=== PATIENT | male | born 1940 | race Caucasian/White ===

== ENCOUNTER 2016-09-06 09:18 | Day surgery (SDC) | payer OTHER ==
[2016-09-06] MEDS ORDERED: PROPOFOL 20 ML ONE ×3 (09:43)
[2016-09-06] MEDS ORDERED: LIDOCAINE HCL/PF 2% SDV 5ML VIAL ONE (09:43)
[2016-09-06 10:00] VITALS: BMI 36.0
[2016-09-06 11:07] VITALS: TEMP 97.6
[2016-09-06 11:31] VITALS: PULSE 68
[2016-09-06 11:59] LABS: BASOPHIL 1.7 % (0-2.0); EOSINOPHIL 1.4 % (0-4.5); MCH 28.5 pg (25.7-33.7); MCHC 32.8 g/dl (32.0-35.9); NEUTROPHILS 55.9 % (42.8-82.8); PLATELET COUNT 134 K/MM3 (134-434); RDW 21.5 % (11.9-15.9); WHITE BLOOD COUNT 3.4 K/mm3 (4.0-10.0)
[2016-09-06 12:13] VITALS: BP 118/83
[2016-09-07 06:06] LABS: SERUM IRON 63 ug/dL (38-169); TOTAL IRON BINDING CAPACITY 384 ug/dL (250-450); UIBC 321 ug/dL (111-343)
--- NOTE | 2016-09-07 12:09 | PATH ---
Surgical Pathology Report Patient Name: YENY CRAMER [facility]. Rec. #: [id number] /Age/Gender: 1940 (Age: 76) / M Account: [id number] Location: U-ENDOSCOPY Taken: 09/06/2016 Received: 09/06/2016 Reported: 09/07/2016 Physicians: Jass Ham D.O. Specimen(s) Received A: BX DUODENUM B: BX DUODENAL BULB C: BX GASTRIC EROSION D: BX ANGULARIS & BODY E: POLYP RIGHT COLON F: BX POLYP RIGHT COLON G: BX CECAL POLYP H: POLYP PROXIMAL TRANSVERSE I: BX POLYP RECTOSIGTMOID Clinical History Anemia, history of colon polyps Gastritis/duodenitis, colon polyps, diverticulosis, hemorrhoids Final Diagnosis A. DUODENUM, BIOPSY: DUODENAL MUCOSA WITH NO PATHOLOGIC CHANGES. NO HISTOLOGIC EVIDENCE OF GLUTEN SENSITIVE ENTEROPATHY (CELIAC SPRUE) IDENTIFIED. B. DUODENUM, BULB, BIOPSY: DUODENAL MUCOSA WITH HETEROTOPIC GASTRIC MUCOSA SHOWING MILD CHRONIC GASTRITIS. NO HISTOLOGIC EVIDENCE OF GLUTEN SENSITIVE ENTEROPATHY (CELIAC SPRUE) IDENTIFIED. C. STOMACH, GASTRIC EROSION, BIOPSY: GASTRIC MUCOSA WITH FOCAL ULCERATION, AND FOCAL MILD CHRONIC GASTRITIS. IMMUNOSTAIN FOR H. PYLORI IS NEGATIVE. D. STOMACH, ANGULARIS AND BODY, BIOPSY: GASTRIC FUNDIC MUCOSA WITH NO PATHOLOGIC CHANGES. IMMUNOSTAIN FOR H. PYLORI IS NEGATIVE. E. COLON, RIGHT, BIOPSY: HYPERPLASTIC POLYP. F. COLON, RIGHT, BIOPSY: TUBULAR ADENOMA. G. COLON, CECUM, BIOPSY: TUBULAR ADENOMA. H. COLON, PROXIMAL TRANSVERSE, BIOPSY: TUBULAR ADENOMA. I. COLON, RECTOSIGMOID, BIOPSY: COLONIC MUCOSA WITH FOCAL HYPERPLASTIC CHANGES. Electronically Signed Sander Carmichael M.D. Gross Description A. Received in formalin, labeled "biopsy duodenum" is a acuña, irregular portion of soft tissue measuring 0.2 cm. in greatest dimension. The specimen is submitted in toto in one cassette. B. Received in formalin, labeled "biopsy duodenal bulb" are 2 acuña, irregular portions of soft tissue measuring 0.2 and 0.4 cm. in greatest dimension. The specimens are submitted in toto in one cassette. C. Received in formalin, labeled "biopsy gastric erosion" are 8 acuña, irregular portions of soft tissue ranging from 0.1-0.6 cm. in greatest dimension. The specimens are submitted in toto in one cassette. D. Received in formalin, labeled "biopsy angularis and body" are 3 acuña, irregular portions of soft tissue ranging from 0.1-0.4 cm. in greatest dimension. The specimens are submitted in toto in one cassette. E. Received in formalin, labeled "polyp right colon" is a acuña, irregular portion of soft tissue measuring 0.5 cm. in greatest dimension. The specimen is submitted in toto in one cassette. F. Received in formalin, labeled "biopsy polyp right colon" are 4 acuña, irregular portions of soft tissue ranging from 0.1-0.4 cm. in greatest dimension. The specimens are submitted in toto in one cassette. G. Received in formalin, labeled "biopsy cecal polyp" are 3 acuña, irregular portions of soft tissue ranging from 0.1-0.4 cm. in greatest dimension. The specimens are submitted in toto in one cassette. H. Received in formalin, labeled "proximal transverse" are 5 acuña, irregular portions of soft tissue ranging from 0.2-0.3 cm. in greatest dimension. The specimens are submitted in toto in one cassette. I. Received in formalin, labeled "biopsy polyp rectosigmoid" is a acuña, irregular portion of soft tissue measuring 0.3 cm. in greatest dimension. The specimen is submitted in toto in one cassette. 09/06/2016 [facility]09/06/2016
== END 2016-09-06 12:13 | disposition home or self-care (01) ==
LOC: JASU-ENDO 09:18
PROVIDERS: ATTEND Internal Medicine Gastroenterology
PROC: 0DBL8ZX Excision of Transverse Colon, Via Natural or Artificial Opening Endoscopic, Diagnostic (ICD-10-PCS; 2016-09-06)
PROC: 0DBH8ZX Excision of Cecum, Via Natural or Artificial Opening Endoscopic, Diagnostic (ICD-10-PCS; 2016-09-06)
PROC: 0DBN8ZX Excision of Sigmoid Colon, Via Natural or Artificial Opening Endoscopic, Diagnostic (ICD-10-PCS; 2016-09-06)
PROC: 0DB98ZX Excision of Duodenum, Via Natural or Artificial Opening Endoscopic, Diagnostic (ICD-10-PCS; 2016-09-06)
PROC: 0DB68ZX Excision of Stomach, Via Natural or Artificial Opening Endoscopic, Diagnostic (ICD-10-PCS; 2016-09-06)
PROC: 0DBF8ZX Excision of Right Large Intestine, Via Natural or Artificial Opening Endoscopic, Diagnostic (ICD-10-PCS; principal; 2016-09-06 10:00)
DX: Z86.010 Personal history of colon polyps (principal); K57.30 Diverticulosis of large intestine without perforation or abscess without bleeding; D12.7 Benign neoplasm of rectosigmoid junction; D12.3 Benign neoplasm of transverse colon; D12.0 Benign neoplasm of cecum; K64.8 Other hemorrhoids; D64.9 Anemia, unspecified; K29.00 Acute gastritis without bleeding
CPT/HCPCS: 36415; 82728; 83540; 83550; 85025; 88305-TC; 88342-TC

== ENCOUNTER 2017-12-11 07:04 | Day surgery (SDC) | payer OTHER ==
[2017-12-10 14:15] VITALS: BMI 35.9
[2017-12-11] MEDS ORDERED: SUCCINYLCHOLINE CHLORIDE 200 MG/10 ML VIAL ONE (08:01)
[2017-12-11] MEDS ORDERED: ePHEDrine SULFATE 50 MG/1 ML AMPULE ONE (08:01)
[2017-12-11] MEDS ORDERED: LIDOCAINE HCL/PF 2% SDV 5ML VIAL ONE (08:01)
[2017-12-11] MEDS ORDERED: PROPOFOL 20 ML ONE ×2 (08:01)
[2017-12-11] MEDS ORDERED: PHENYLEPHRINE HCL 10 MG/1 ML SINGLE DOSE VIAL ONE (08:01)
[2017-12-11 08:35] VITALS: TEMP 98.9
[2017-12-11 09:15] VITALS: BP 136/86; PULSE 64
--- NOTE | 2017-12-12 11:44 | PATH ---
Surgical Pathology Report Patient Name: YENY CRAMER [facility]. Rec. #: [id number] /Age/Gender: 1940 (Age: 77) / M Account: [id number] Location: U-ENDOSCOPY Taken: 12/11/2017 Received: 12/11/2017 Reported: 12/12/2017 Physicians: Shay Greer M.D. Specimen(s) Received BX RIGHT COLON POLYP Clinical History Personal history of colon polyp, anemia Postoperative diagnosis: Colon polyp, diverticulosis, hemorrhoids Final Diagnosis RIGHT COLON POLYPS, POLYPECTOMY: TUBULAR ADENOMA. SEPARATE COLONIC MUCOSA WITH NO DIAGNOSTIC ABNORMALITIES. Electronically Signed Karri Sheehan M.D. Gross Description Received in formalin, labeled "biopsy right colon polyps" are 4 acuña, irregular portions of soft tissue ranging from 0.1-0.6 cm. in greatest dimension. The specimens are submitted in toto in one cassette. /12/11/2017 [place]/12/11/2017
== END 2017-12-11 09:45 | disposition home or self-care (01) ==
LOC: JASU-ENDO 07:04
PROVIDERS: ATTEND Internal Medicine Gastroenterology
PROC: 0DBK8ZX Excision of Ascending Colon, Via Natural or Artificial Opening Endoscopic, Diagnostic (ICD-10-PCS; principal; 2017-12-11 08:00)
DX: Z12.11 Encounter for screening for malignant neoplasm of colon (principal); D12.2 Benign neoplasm of ascending colon; K57.30 Diverticulosis of large intestine without perforation or abscess without bleeding; K64.8 Other hemorrhoids; Z86.010 Personal history of colon polyps; E66.01 Morbid (severe) obesity due to excess calories; E11.9 Type 2 diabetes mellitus without complications; Z79.84 Long term (current) use of oral hypoglycemic drugs
CPT/HCPCS: 82962; 88305-TC

== ENCOUNTER 2022-07-13 11:33 | Observation (INO) | payer OTHER ==
[2022-07-13 11:38] VITALS: BMI 37.8
[2022-07-13] MEDS ORDERED: MECLIZINE HCL 25 MG TABLET (FP) PO ONE (12:18)
[2022-07-13] MEDS ORDERED: MECLIZINE HCL 25 MG TABLET (FP) ONE (12:24)
[2022-07-13] MEDS ORDERED: SODIUM CHLORIDE 0.9% 500 ML INFUS.BAG IV ONE (13:21)
[2022-07-13 13:28] LABS: BASO % 1.5 % (0-2.0); EOS % 1.5 % (0-4.5); HEMATOCRIT 30.7 % (35.4-49); HEMOGLOBIN 10.6 GM/dL (11.7-16.9); MCH 33.1 pg (25.7-33.7); MCHC 34.6 g/dl (32.0-35.9); MEAN CELL VOLUME 95.8 fl (80-96); MEAN PLT VOLUME 9.3 fl (7.5-11.1); MONO % 11.8 % (3.8-10.2); NEUT % 58.2 % (42.8-82.8); PLATELET COUNT 146 10^3/uL (134-434); RBC 3.21 M/mm3 (4.00-5.60); RDW 14.8 % (11.9-15.9); WHITE BLOOD COUNT 4.5 K/mm3 (4.0-10.0)
[2022-07-13 13:29] LABS: PH,URINE 6.5 (5.0-8.0); URINE APPEARANCE CLEAR; URINE BILIRUBIN NEGATIVE (NEGATIVE); URINE COLOR YELLOW; URINE GLUCOSE (UA) 1+ (NEGATIVE); URINE KETONE NEGATIVE (NEGATIVE); URINE LEUK ESTERASE NEGATIVE (NEGATIVE); URINE NITRITE NEGATIVE (NEGATIVE); URINE PROTEIN NEGATIVE (NEGATIVE); URINE UROBILINOGEN 0.2 mg/dL (0.2-1.0)
[2022-07-13 13:36] LABS: INR 1.02 (0.83-1.09); PROTHROMBIN TIME (PATIENT) 11.8 SEC (9.7-13.0)
[2022-07-13 13:38] LABS: ACTIVATED PTT 30.3 SECONDS (25.2-36.5)
[2022-07-13 13:52] LABS: CHLORIDE 107 mmol/L (98-107); SODIUM 136 mmol/L (136-145)
[2022-07-13 13:54] LABS: CALCIUM 9.2 mg/dL (8.5-10.1)
[2022-07-13 13:55] LABS: ALBUMIN 3.6 g/dl (3.4-5.0); ANION GAP 3 MMOL/L (8-16); BLOOD UREA NITROGEN 25.3 mg/dL (7-18); CO2 27 mmol/L (21-32); GLUCOSE,RANDOM 188 mg/dL (74-106); MAGNESIUM 2.1 mg/dL (1.8-2.4)
[2022-07-13 13:58] LABS: PHOSPHOROUS 3.4 mg/dL (2.5-4.9); SGOT/AST 43 U/L (15-37); SGPT/ALT 28 U/L (13-61)
[2022-07-13 13:59] LABS: BILIRUBIN,TOTAL 0.3 mg/dL (0.2-1); TOT PROT 6.8 g/dl (6.4-8.2)
[2022-07-13 14:01] LABS: ALK PHOS 62 U/L (45-117); N-TERMINAL BNP 241.7 pg/ml (5-450)
[2022-07-13 16:46] LABS: CALCIUM 8.3 mg/dL (8.5-10.1)
[2022-07-13 16:47] LABS: BLOOD UREA NITROGEN 25.5 mg/dL (7-18)
[2022-07-13 16:50] LABS: CREATININE 0.9 mg/dL (0.55-1.3)
[2022-07-13] MEDS ORDERED: POLYETHYLENE GLYCOL (HEALTHYLAX) 3350 17 GM PACKET PO ONE (22:30)
[2022-07-13] MEDS: INSULIN SLIDING SCALE (NOVOLOG) 1 VIAL SQ SCH (22:45)
[2022-07-14] MEDS: INSULIN SLIDING SCALE (NOVOLOG) 1 VIAL SQ SCH ×4 (06:46→21:54)
[2022-07-14 08:59] LABS: HEMATOCRIT 28.4 % (35.4-49); HEMOGLOBIN 9.7 GM/dL (11.7-16.9); MCH 32.5 pg (25.7-33.7); MEAN CELL VOLUME 95.6 fl (80-96); MEAN PLT VOLUME 8.8 fl (7.5-11.1); PLATELET COUNT 136 10^3/uL (134-434); RBC 2.97 M/mm3 (4.00-5.60); WHITE BLOOD COUNT 4.3 K/mm3 (4.0-10.0)
[2022-07-14 09:17] LABS: ALBUMIN 3.3 g/dl (3.4-5.0)
[2022-07-14 09:18] LABS: BLOOD UREA NITROGEN 22.2 mg/dL (7-18)
[2022-07-14 09:22] LABS: BILIRUBIN,TOTAL 0.3 mg/dL (0.2-1); TOT PROT 5.9 g/dl (6.4-8.2)
[2022-07-14] MEDS: ENOXAPARIN NA (PORCINE) 40 MG/0.4 ML DISP.SYRIN SQ SCH (10:33)
[2022-07-14] MEDS: ATORVASTATIN CA 10 MG TABLET (FP) PO SCH (21:53)
[2022-07-14] MEDS: MECLIZINE HCL 25 MG TABLET (FP) PO PRN (21:53)
[2022-07-14] MEDS: INSULIN (LEVEMIR) 100 UNITS/ML UNITS SQ SCH (21:54)
[2022-07-14] MEDS: LATANOPROST 0.005% OPHTH SOLN 2.5ML BOTTLE OU SCH (21:55)
[2022-07-15] MEDS: INSULIN SLIDING SCALE (NOVOLOG) 1 VIAL SQ SCH ×4 (06:38→21:56)
[2022-07-15] MEDS ORDERED: PATIENT'S OWN MEDICATION (NON-FORMULARY) (Timolol [Betimol] 5 ML Drops) OU SCH (10:00)
[2022-07-15] MEDS ORDERED: PATIENT'S OWN MEDICATION (NON-FORMULARY) (Ferrous Fumarate/Ascorbic Acid [Ferro-Sequels 65 PO SCH (10:00)
[2022-07-15] MEDS: ENOXAPARIN NA (PORCINE) 40 MG/0.4 ML DISP.SYRIN SQ SCH (10:04)
[2022-07-15] MEDS: METHIMAZOLE 5 MG TABLET PO SCH (10:12)
[2022-07-15] MEDS: MULTIVITAMINS THER W-MINERALS COMBO TABLET (FP) PO SCH (10:13)
[2022-07-15] MEDS: LISINOPRIL 5 MG TABLET PO SCH (10:15)
[2022-07-15] MEDS: CHOLECALCIFEROL (VIT D3) 1,000 UNIT (25 MCG) TABLET PO SCH (10:16)
[2022-07-15] MEDS: UMECLIDINIUM/VILANTEROL (ANORO) 62.5/25 MCG INHALER IH SCH (10:18)
[2022-07-15] MEDS: TIMOLOL 0.5% OPHTHALMIC SOL 5 ML BOTTLE OU SCH (12:05)
[2022-07-15] MEDS ORDERED: INSULIN (NOVOLOG) ASPART 100 UNITS/ML 10ML VIAL ONE ×4 (12:11→21:56)
[2022-07-15] MEDS: ATORVASTATIN CA 10 MG TABLET (FP) PO SCH (21:50)
[2022-07-15] MEDS: LATANOPROST 0.005% OPHTH SOLN 2.5ML BOTTLE OU SCH (21:57)
[2022-07-15] MEDS: INSULIN (LEVEMIR) 100 UNITS/ML UNITS SQ SCH (21:57)
[2022-07-16] MEDS: INSULIN SLIDING SCALE (NOVOLOG) 1 VIAL SQ SCH ×4 (06:50→21:46)
[2022-07-16] MEDS: LISINOPRIL 5 MG TABLET PO SCH (09:37)
[2022-07-16] MEDS: CHOLECALCIFEROL (VIT D3) 1,000 UNIT (25 MCG) TABLET PO SCH (09:37)
[2022-07-16] MEDS: MULTIVITAMINS THER W-MINERALS COMBO TABLET (FP) PO SCH (09:37)
[2022-07-16] MEDS: METHIMAZOLE 5 MG TABLET PO SCH (09:37)
[2022-07-16] MEDS: ENOXAPARIN NA (PORCINE) 40 MG/0.4 ML DISP.SYRIN SQ SCH (09:38)
[2022-07-16] MEDS: UMECLIDINIUM/VILANTEROL (ANORO) 62.5/25 MCG INHALER IH SCH (09:39)
[2022-07-16] MEDS: TIMOLOL 0.5% OPHTHALMIC SOL 5 ML BOTTLE OU SCH (09:39)
[2022-07-16] MEDS: MECLIZINE HCL 25 MG TABLET (FP) PO PRN (17:08)
[2022-07-16] MEDS: ATORVASTATIN CA 10 MG TABLET (FP) PO SCH (21:35)
[2022-07-16] MEDS: LATANOPROST 0.005% OPHTH SOLN 2.5ML BOTTLE OU SCH (21:35)
[2022-07-16] MEDS: INSULIN (LEVEMIR) 100 UNITS/ML UNITS SQ SCH (21:48)
[2022-07-17] MEDS: INSULIN SLIDING SCALE (NOVOLOG) 1 VIAL SQ SCH ×4 (06:22→21:27)
[2022-07-17] MEDS: LISINOPRIL 5 MG TABLET PO SCH (09:43)
[2022-07-17] MEDS: METHIMAZOLE 5 MG TABLET PO SCH (09:43)
[2022-07-17] MEDS: MULTIVITAMINS THER W-MINERALS COMBO TABLET (FP) PO SCH (09:43)
[2022-07-17] MEDS: ENOXAPARIN NA (PORCINE) 40 MG/0.4 ML DISP.SYRIN SQ SCH (09:43)
[2022-07-17] MEDS: CHOLECALCIFEROL (VIT D3) 1,000 UNIT (25 MCG) TABLET PO SCH (09:43)
[2022-07-17] MEDS: TIMOLOL 0.5% OPHTHALMIC SOL 5 ML BOTTLE OU SCH (09:44)
[2022-07-17] MEDS: UMECLIDINIUM/VILANTEROL (ANORO) 62.5/25 MCG INHALER IH SCH (09:44)
[2022-07-17] MEDS ORDERED: INSULIN (NOVOLOG) ASPART 100 UNITS/ML 10ML VIAL ONE (11:39)
[2022-07-17] MEDS: FLUTICASONE PROP 0.05% 16 GM NASAL SPRAY NS SCH (21:21)
[2022-07-17] MEDS: LATANOPROST 0.005% OPHTH SOLN 2.5ML BOTTLE OU SCH (21:22)
[2022-07-17] MEDS: MECLIZINE HCL 25 MG TABLET (FP) PO SCH ×2 (21:23→21:31)
[2022-07-17] MEDS: ATORVASTATIN CA 10 MG TABLET (FP) PO SCH (21:23)
[2022-07-17] MEDS: INSULIN (LEVEMIR) 100 UNITS/ML UNITS SQ SCH (21:26)
[2022-07-18] MEDS: MECLIZINE HCL 25 MG TABLET (FP) PO SCH ×3 (06:20→23:45)
[2022-07-18] MEDS: INSULIN SLIDING SCALE (NOVOLOG) 1 VIAL SQ SCH ×4 (06:24→22:31)
[2022-07-18 09:21] LABS: BASO % 1.2 % (0-2.0); EOS % 2.6 % (0-4.5); HEMATOCRIT 29.7 % (35.4-49); HEMOGLOBIN 10.1 GM/dL (11.7-16.9); LYMPH % 21.5 % (8-40); MCH 32.9 pg (25.7-33.7); MCHC 34.2 g/dl (32.0-35.9); MEAN CELL VOLUME 96.3 fl (80-96); MEAN PLT VOLUME 8.9 fl (7.5-11.1); NEUT % 61.7 % (42.8-82.8); PLATELET COUNT 144 10^3/uL (134-434); RBC 3.08 M/mm3 (4.00-5.60); RDW 14.9 % (11.9-15.9)
[2022-07-18 09:49] LABS: BLOOD UREA NITROGEN 25.2 mg/dL (7-18)
[2022-07-18 09:50] LABS: ALBUMIN 3.3 g/dl (3.4-5.0); CALCIUM 8.9 mg/dL (8.5-10.1)
[2022-07-18 09:51] LABS: BILIRUBIN,TOTAL 0.4 mg/dL (0.2-1); CREATININE 1.1 mg/dL (0.55-1.3)
[2022-07-18] MEDS: CHOLECALCIFEROL (VIT D3) 1,000 UNIT (25 MCG) TABLET PO SCH (10:02)
[2022-07-18] MEDS: MULTIVITAMINS THER W-MINERALS COMBO TABLET (FP) PO SCH (10:02)
[2022-07-18] MEDS: LISINOPRIL 5 MG TABLET PO SCH (10:03)
[2022-07-18] MEDS: ENOXAPARIN NA (PORCINE) 40 MG/0.4 ML DISP.SYRIN SQ SCH (10:03)
[2022-07-18] MEDS: METHIMAZOLE 5 MG TABLET PO SCH (10:03)
[2022-07-18] MEDS: UMECLIDINIUM/VILANTEROL (ANORO) 62.5/25 MCG INHALER IH SCH (10:31)
[2022-07-18] MEDS: TIMOLOL 0.5% OPHTHALMIC SOL 5 ML BOTTLE OU SCH (10:32)
[2022-07-18] MEDS: FLUTICASONE PROP 0.05% 16 GM NASAL SPRAY NS SCH ×3 (10:35→23:45)
[2022-07-18] MEDS ORDERED: INSULIN (NOVOLOG) ASPART 100 UNITS/ML 10ML VIAL ONE (11:26)
[2022-07-18] MEDS ORDERED: ONDANSETRON 4 MG TABLET PO PRN (21:44)
[2022-07-18] MEDS: INSULIN (LEVEMIR) 100 UNITS/ML UNITS SQ SCH (22:32)
[2022-07-18] MEDS: ATORVASTATIN CA 10 MG TABLET (FP) PO SCH (23:45)
[2022-07-18] MEDS: LATANOPROST 0.005% OPHTH SOLN 2.5ML BOTTLE OU SCH (23:46)
[2022-07-19] MEDS: MECLIZINE HCL 25 MG TABLET (FP) PO SCH ×2 (06:30→13:44)
[2022-07-19] MEDS: INSULIN SLIDING SCALE (NOVOLOG) 1 VIAL SQ SCH ×2 (06:53→12:28)
[2022-07-19 09:00] LABS: BASO % 1.3 % (0-2.0); EOS % 2.1 % (0-4.5); HEMATOCRIT 31.8 % (35.4-49); HEMOGLOBIN 10.8 GM/dL (11.7-16.9); LYMPH % 25.1 % (8-40); MCH 32.8 pg (25.7-33.7); MCHC 34.1 g/dl (32.0-35.9); MEAN CELL VOLUME 96.3 fl (80-96); MEAN PLT VOLUME 9.1 fl (7.5-11.1); MONO % 13.3 % (3.8-10.2); NEUT % 58.2 % (42.8-82.8); PLATELET COUNT 145 10^3/uL (134-434); RDW 14.9 % (11.9-15.9); WHITE BLOOD COUNT 4.8 K/mm3 (4.0-10.0)
[2022-07-19] MEDS: CHOLECALCIFEROL (VIT D3) 1,000 UNIT (25 MCG) TABLET PO SCH (10:20)
[2022-07-19] MEDS: MULTIVITAMINS THER W-MINERALS COMBO TABLET (FP) PO SCH (10:20)
[2022-07-19] MEDS: METHIMAZOLE 5 MG TABLET PO SCH (10:20)
[2022-07-19] MEDS: LISINOPRIL 5 MG TABLET PO SCH (10:20)
[2022-07-19] MEDS: UMECLIDINIUM/VILANTEROL (ANORO) 62.5/25 MCG INHALER IH SCH (10:29)
[2022-07-19] MEDS: TIMOLOL 0.5% OPHTHALMIC SOL 5 ML BOTTLE OU SCH (10:30)
[2022-07-19] MEDS: ENOXAPARIN NA (PORCINE) 40 MG/0.4 ML DISP.SYRIN SQ SCH (10:30)
[2022-07-19] MEDS: FLUTICASONE PROP 0.05% 16 GM NASAL SPRAY NS SCH (10:31)
[2022-07-19] MEDS ORDERED: INSULIN (NOVOLOG) ASPART 100 UNITS/ML 10ML VIAL ONE (12:24)
[2022-07-19 15:01] VITALS: BP 126/63; PULSE 65; RESP 20; TEMP 98.7
[2022-07-19 16:19] LABS: BLOOD UREA NITROGEN 25.7 mg/dL (7-18); CALCIUM 9.1 mg/dL (8.5-10.1)
[2022-07-19 16:21] LABS: ALBUMIN 3.5 g/dl (3.4-5.0)
[2022-07-19 16:24] LABS: BILIRUBIN,TOTAL 0.3 mg/dL (0.2-1)
[2022-07-19 16:25] LABS: CREATININE 1.2 mg/dL (0.55-1.3)
[2022-07-19 16:26] LABS: TOT PROT 6.5 g/dl (6.4-8.2)
== END 2022-07-19 18:17 | disposition home or self-care (01) ==
LOC: JER 11:33 → INTOOBSV 14:31 → JERBED 14:31 → UNDOADMOB 14:31 → JERBED 18:26 → J8W 20:27
PROVIDERS: ADMIT Internal Medicine; ATTEND Nurse Practitioner Family
PROC: 3E033GC Introduction of Other Therapeutic Substance into Peripheral Vein, Percutaneous Approach (ICD-10-PCS; principal; 2022-07-13)
PROC: 3E013VG Introduction of Insulin into Subcutaneous Tissue, Percutaneous Approach (ICD-10-PCS; 2022-07-13)
PROC: 3E013GC Introduction of Other Therapeutic Substance into Subcutaneous Tissue, Percutaneous Approach (ICD-10-PCS; 2022-07-13)
PROC: 3E0F7SF Introduction of Other Gas into Respiratory Tract, Via Natural or Artificial Opening (ICD-10-PCS; 2022-07-13)
DX: R42 Dizziness and giddiness (principal); H65.90 Unspecified nonsuppurative otitis media, unspecified ear; R55 Syncope and collapse; I50.30 Unspecified diastolic (congestive) heart failure; I11.0 Hypertensive heart disease with heart failure; E11.9 Type 2 diabetes mellitus without complications; E78.5 Hyperlipidemia, unspecified; E05.90 Thyrotoxicosis, unspecified without thyrotoxic crisis or storm; J44.9 Chronic obstructive pulmonary disease, unspecified; D64.9 Anemia, unspecified; I44.0 Atrioventricular block, first degree; R00.1 Bradycardia, unspecified; H40.9 Unspecified glaucoma; Z85.038 Personal history of other malignant neoplasm of large intestine; G47.30 Sleep apnea, unspecified; E65 Localized adiposity; I65.29 Occlusion and stenosis of unspecified carotid artery; Z29.8 Encounter for other specified prophylactic measures; Z79.4 Long term (current) use of insulin; Z79.84 Long term (current) use of oral hypoglycemic drugs; Z87.891 Personal history of nicotine dependence
CPT/HCPCS: 0241U-QW; 36415; 70450-TC; 70551-TC; 71045-TC-FY; 72125-TC; 80048; 80053; 80061; 81003; 82550; 82607; 82746; 82962; 83036; 83735; 83880; 84100; 84439; 84443; 84484; 85025; 85027; 85610; 85730; 87086; 93005; 93010; 93225; 93226; 93306-TC; 93880-TC; 94640; 96372; 96374; 97116-GP; 99285-25; G0378